=== PATIENT | female | born 1970 | race Caucasian/White ===

== ENCOUNTER 2016-10-04 16:23 | Emergency (ER) | payer OTHER ==
[~2016-10-04] VITALS: Ht 160 cm; Wt 93.4 kg
[~2016-10-04 16:23] MED LIST: ASPIR 8181 MG PO; COL100 PO; LISINOPRIL30 MG PO
[2016-10-04 18:15] VITALS: BP 151/77
== END 2016-10-04 18:00 | disposition home or self-care (01) ==
LOC: ED 16:23
DX: K64.9 Unspecified hemorrhoids (principal); K62.5 Hemorrhage of anus and rectum; I10 Essential (primary) hypertension

== ENCOUNTER 2016-12-25 05:21 | Emergency (ER) | payer OTHER ==
[2016-12-25 07:26] LABS: BASOPHIL % 0.5 % (0-2); PLATELET COUNT 350 x10^3mcL (130-400); RED CELL DISTRIBUTION WIDTH 13.6 % (11.5-14.5)
[2016-12-25 08:46] LABS: CARBON DIOXIDE 33.1 mmol/L (21-32); CHLORIDE SERUM 105 mmol/L (98-107); POTASSIUM SERUM 3.9 mmol/L (3.5-5.1); SODIUM SERUM 143 mmol/L (136-145)
[2016-12-25 08:47] LABS: ALBUMIN 3.9 g/dL (3.4-5.0); ALKALINE PHOSPHATASE 106 U/L (46-116); ALT/SGPT 31 U/L (14-59); AMYLASE 30 U/L (25-115); AST/SGOT 21 U/L (15-37); BILIRUBIN TOTAL 0.3 mg/dL (0.20-1.00); CREATININE SERUM 0.8 mg/dL (0.6-1.0); GFR1 > 60 mL/min; GLUCOSE SERUM 97 mg/dL (74-106); LIPASE 145 IU/L (73-393); TOTAL PROTEIN, SERUM 7.9 g/dL (6.4-8.2)
[2016-12-25 09:17] VITALS: BP 140/86
== END 2016-12-25 05:24 | disposition home or self-care (01) ==
LOC: ED 05:21
PROVIDERS: Emergency Medicine
DX: K80.50 Calculus of bile duct without cholangitis or cholecystitis without obstruction (principal); I10 Essential (primary) hypertension
CPT/HCPCS: 83880; J1885

== ENCOUNTER 2017-12-25 10:22 | Emergency (ER) | payer OTHER ==
[~2017-12-25] VITALS: Ht 157.5 cm; Wt 88.9 kg
[2017-12-25 11:48] VITALS: BP 151/98
== END 2017-12-25 11:48 | disposition home or self-care (01) ==
LOC: ED 10:22
DX: N75.1 Abscess of Bartholin's gland (principal); I10 Essential (primary) hypertension
CPT/HCPCS: 90715; J0696

== ENCOUNTER 2017-12-27 12:52 | Emergency (ER) | payer OTHER ==
[~2017-12-27] VITALS: Ht 157.5 cm; Wt 88.5 kg
[2017-12-27 13:13] VITALS: Ht 157.5 cm; Wt 88.5 kg
[2017-12-27 15:35] VITALS: BP 131/78
== END 2017-12-27 15:35 | disposition home or self-care (01) ==
LOC: ED 12:52
DX: Z48.01 Encounter for change or removal of surgical wound dressing (principal); I10 Essential (primary) hypertension

== ENCOUNTER 2018-12-25 05:35 | Emergency (ER) | payer OTHER ==
[~2018-12-25] VITALS: Ht 157.5 cm; Wt 97.5 kg
[2018-12-25 05:39] VITALS: Ht 157.5 cm; Wt 97.5 kg
[2018-12-25 05:58] VITALS: BP 148/82
== END 2018-12-25 05:58 | disposition home or self-care (01) ==
LOC: ED 05:35
DX: R21 Rash and other nonspecific skin eruption (principal); I10 Essential (primary) hypertension; L29.9 Pruritus, unspecified

== ENCOUNTER 2020-01-19 19:53 | Emergency (ER) | payer OTHER ==
[~2020-01-19] VITALS: Ht 160 cm; Wt 96.6 kg
[2020-01-19 20:04] VITALS: Ht 160 cm; Wt 96.6 kg
[2020-01-19 20:38] VITALS: BP 168/103
== END 2020-01-19 20:38 | disposition home or self-care (01) ==
LOC: ED 19:53
DX: H92.02 Otalgia, left ear (principal); I10 Essential (primary) hypertension; Z87.19 Personal history of other diseases of the digestive system

== ENCOUNTER 2020-01-22 21:44 | Emergency (ER) | payer OTHER ==
[~2020-01-22] VITALS: Ht 160 cm; Wt 97.5 kg
[2020-01-22 21:52] VITALS: Ht 160 cm; Wt 97.5 kg
[2020-01-22 23:09] VITALS: BP 119/63
== END 2020-01-22 23:09 | disposition home or self-care (01) ==
LOC: ED 21:44
DX: U07.1 COVID-19 (principal); I10 Essential (primary) hypertension
CPT/HCPCS: Q0092; U0003-CS

== ENCOUNTER 2020-05-17 14:05 | Emergency (ER) | payer OTHER ==
[~2020-05-17] VITALS: Ht 160 cm; Wt 90.7 kg
[2020-05-17 14:22] VITALS: Ht 160 cm; Wt 90.7 kg
[2020-05-17 15:58] VITALS: BP 168/90
== END 2020-05-17 15:58 | disposition home or self-care (01) ==
LOC: ED 14:05
DX: M25.562 Pain in left knee (principal); I10 Essential (primary) hypertension; Z90.49 Acquired absence of other specified parts of digestive tract; W22.8XXA Striking against or struck by other objects, initial encounter; Y93.89 Activity, other specified; Y92.89 Other specified places as the place of occurrence of the external cause; Y99.8 Other external cause status
CPT/HCPCS: J1885